=== PATIENT | male | born 1960 | race Caucasian/White ===

== ENCOUNTER → 2018-07-05 | Outpatient (CLI) | payer OTHER | LOC: M.INFUS 14:30 | DX: Z23 Encounter for immunization (principal) ==

== ENCOUNTER → 2018-07-09 | Outpatient (CLI) | payer OTHER ==
[2018-07-09 10:40] VITALS: BP 124/77
--- NOTE | 2018-07-09 11:04 | NUR ---
ARRIVED AMBULATORY. MADE SELF COMFORTABLE. DENIES ADVERSE REACTION TO PRIOR INJECTION OF SAME. INJECTION COMPLETED AND TOLERATED WELL. DENIES NEEDS AT DISCHARGE.
== END ==
LOC: M.INFUS 01:05
DX: Z23 Encounter for immunization (principal)

== ENCOUNTER → 2018-07-16 | Outpatient (CLI) | payer OTHER ==
[2018-07-16 10:25] VITALS: BP 140/90
== END ==
LOC: M.INFUS 01:16
DX: Z23 Encounter for immunization (principal)